=== PATIENT | female | born 1965 | race Caucasian/White ===

== ENCOUNTER → 2018-08-31 | Outpatient (CLI) | payer BC | END | disposition home or self-care (01) | LOC: CVU 10:53 | PROVIDERS: ATTEND Internal Medicine Cardiovascular Disease | DX: I35.8 Other nonrheumatic aortic valve disorders (principal) | CPT/HCPCS: 93306 ==

== ENCOUNTER → 2018-09-05 | Outpatient (CLI) | payer BC | END | disposition home or self-care (01) | LOC: CARD 08:22 | PROVIDERS: ATTEND Internal Medicine Cardiovascular Disease | DX: R06.02 Shortness of breath (principal) | CPT/HCPCS: 93017 ==

== ENCOUNTER 2018-09-10 11:03 | Observation (INO) | payer BC ==
[~2018-09-10] VITALS: Ht 162.6 cm; Wt 133.1 kg
[2018-09-10] MEDS ORDERED: DIPHENHYDRAMINE 50 MG/ML, 1ML IVPush ONE (12:00)
[2018-09-10 12:07] VITALS: BP 150/79
[2018-09-10] MEDS ORDERED: MECL25TA4 PO (12:22)
[2018-09-10] MEDS ORDERED: RIZA5TAB14 PO (12:22)
[2018-09-10] MEDS ORDERED: SUCR1TAB PO (12:22)
[2018-09-10] MEDS ORDERED: OMEP-110 PO (12:22)
[2018-09-10 12:25] LABS: BASOPHILS # (AUTO) 0.06 x10^3/uL (0-0.1); BASOPHILS % (AUTO) 1 % (0-1); EOSINOPHILS # (AUTO) 0.14 x10^3/uL (0-0.4); EOSINOPHILS % (AUTO) 2 % (1-7); LYMPHOCYTES # (AUTO) 3.64 x10^3/uL (1-3.4); LYMPHOCYTES % (AUTO) 41 % (22-44); MD NO; MEAN CORPUSCULAR HGB CONC 34.6 g/dL (32.4-35.8); MEAN CORPUSCULAR VOLUME 98.4 fL (80-100); MEAN PLATELET VOLUME 9.2 fL (7.4-10.4); MONOCYTES % (AUTO) 6 % (2-9); NEUTROPHILS # (AUTO) 4.62 x10^3/uL (1.8-6.8); NEUTROPHILS % (AUTO) 52 % (42-75); PLATELET COUNT 249 x10^3/uL (130-400); RED BLOOD COUNT 4.85 x10^6/uL (3.82-5.3); RED CELL DISTRIBUTION WIDTH 13.5 % (9.6-15.2)
[2018-09-10] MEDS ORDERED: LIDOCAINE-MPF 1%, 5ML ONE (12:30)
[2018-09-10] MEDS ORDERED: MIDAZOLAM 1 MG/ML, 5ML ONE (12:30)
[2018-09-10] MEDS ORDERED: FENTANYL PF 100 MCG/2ML ONE (12:30)
[2018-09-10] MEDS ORDERED: HEPARIN 1,000 UNITS/ML, 10ML ONE (12:30)
[2018-09-10] MEDS ORDERED: BIVALIRUDIN 250 MG ONE (12:30)
[2018-09-10] MEDS ORDERED: NITROGLYCERIN 5 MG/ML, 10ML ONE (12:30)
[2018-09-10] MEDS ORDERED: VERAPAMIL 2.5 MG/ML, 2ML ONE (12:30)
[2018-09-10] MEDS ORDERED: TICAGRELOR 90 MG TABLET ONE (12:30)
[2018-09-10 12:32] LABS: CHLORIDE 110 mmol/L (98-107)
[2018-09-10 12:36] LABS: ANION GAP 6 mmol/L (5-15); CALCIUM 8.5 mg/dL (8.5-10.1)
[2018-09-10 12:37] LABS: CREATININE 0.82 mg/dL (0.55-1.02)
[2018-09-10] MEDS ORDERED: SODIUM CHLORIDE 0.9% 1,000 ML IV SCH (13:14)
[2018-09-10] MEDS ORDERED: ACETAMINOPHEN 325 MG TABLET PO PRN (14:00)
[2018-09-10] MEDS ORDERED: MORPHINE SULFATE 4 MG/ML, 1ML IVPush PRN (14:30)
[2018-09-10] MEDS ORDERED: MORPHINE SULFATE 4 MG/ML, 1ML ONE (14:33)
[2018-09-10] MEDS ORDERED: ONDANSETRON 2MG/ML, 2ML ONE (15:36)
[2018-09-10] MEDS ORDERED: ONDANSETRON 2MG/ML, 2ML IVPush ONE (16:00)
[2018-09-10 17:09] VITALS: BP 121/81
[2018-09-10] MEDS: SODIUM CHLORIDE 0.9% 1,000 ML IV SCH ×2 (17:15→17:40)
[2018-09-10] MEDS ORDERED: DIPHENHYDRAMINE 25 MG CAPSULE PO PRN (17:30)
[2018-09-10] MEDS ORDERED: MECLIZINE CHEWABLE 25 MG TAB PO PRN (17:30)
[2018-09-10] MEDS ORDERED: ONDANSETRON 2MG/ML, 2ML IVPush PRN ×2 (17:30)
[2018-09-10] MEDS ORDERED: SUCRALFATE 1 GM TABLET PO PRN (17:30)
[2018-09-10 20:20] VITALS: BP 140/87
[2018-09-11 02:24] VITALS: BP 135/83
[2018-09-11] MEDS ORDERED: OMEPRAZOLE 20 MG CAPSULE.DR PO PRN (06:00)
[2018-09-11 08:04] VITALS: BP 139/87
== END 2018-09-11 12:28 | disposition home or self-care (01) ==
LOC: CACL 11:03 → 5SO 17:04 → CACL 17:21 → 5SO 17:21 → DCLOUNGE 09-11 12:04
PROVIDERS: ADMIT Internal Medicine Cardiovascular Disease; ATTEND Internal Medicine Cardiovascular Disease
DX: I20.8 Other forms of angina pectoris (principal); R94.39 Abnormal result of other cardiovascular function study
CPT/HCPCS: 36415; 80048; 85025; 93458; 96374; 96375; 99156; C1769; C1887; C1894; G0378; J1644; J2250; J2405; J3010; Q9967; J0583